=== PATIENT | male | born 1990 | race Two or more races ===

== ENCOUNTER 2016-10-26 09:46 | Emergency (ER) | payer OTHER ==
[2016-10-26 09:51] VITALS: BP 113/46; PULSE 65; TEMP 98; BMI 25.7
--- NOTE | 2016-10-26 09:52 | PDOC ---
History of Present Illness - General Chief Complaint: Syncope/Near Syncope Stated Complaint: SYNCOPE Time Seen by Provider: 10/26/16 09:49 History Source: Patient Exam Limitations: No Limitations - History of Present Illness Initial Comments: 10/26/16 10:34 26m no known pmhx presents with episode of syncope. The pt was upstairs and his was awaiting a procedure. he was standing and felt lightheaded and was noticed to be pale and diaphoretic, and he syncopized for a few seconds, sat up and syncopized again. Pt was seen striking his head on the left nondenominational (not the first part of body that hit the ground) PT denies any associated headache, palpitations, chest pain, abd pain, back pain, melena, bpr. Pt states he had not eaten today and was feeling a bit anxious prior to her 's procedure. pt states he had 1 episode of syncope in the past when he had blood drawn for the first time no exertional syncope no known family history denies ivdu Past History - Past Medical History Allergies/Adverse Reactions: Allergies Allergy/AdvReac Type Severity Reaction Status Date / Time No Known Allergies Allergy Verified 10/26/16 09:52 Home Medications: Ambulatory Orders Fexofenadine HCl [Tanja Allergy] 0 mg PO DAILY 10/26/16 Other medical history: IBS, SELECTIVE IGA DEFF - Psycho/Social/Smoking Cessation Hx Anxiety: No Suicidal Ideation: No Smoking History: Never smoked Hx Alcohol Use: Yes Drug/Substance Use Hx: No Substance Use Type: Alcohol Review of Systems - Review of Systems Able to Perform ROS?: Yes Comments:: 10/26/16 10:38 Constitutional - no reported Fever, Chills, HEENT: no reported vision changes, sore throat Respiratory: no reported cough, sob, hemoptysis Cardiac: +syncope no reported chest pain, palpitations, light headedness, leg swelling Abd/GI: no reported abd pain, nausea, vomiting, blood per rectum, melena, diarrhea : no reported dysuria, frequency, discharge Musculskelatal - no reported back pain, joint swelling skin - no reported bruising, erythema, rash neurological: no reported headache, numbness, focal weakness, tingling, ataxia, hematologic: no reported anemia, easy bruising, easy bleeding *Physical Exam - Vital Signs Last Vital Signs Temp Pulse Resp BP Pulse Ox 98.0 F 65 16 113/46 100 10/26/16 09:47 10/26/16 09:47 10/26/16 09:47 10/26/16 09:47 10/26/16 09:47 - Physical Exam Comments: 10/26/16 10:40 GENERAL: The patient is awake, alert, and fully oriented, Nontoxic - in no acute distress. HEAD: Normocephalic, atraumatic, minmial tenderness of left anterior scalp/ foreahed w/o any bruising, ecchymosis, swelling, erythema EYES: extraocular movements intact, sclera anicteric, conjunctiva clear, pupils 3mm and symmetrically reactive to light ENT: Normal voice, Moist mucous membranes. NECK: Normal range of motion, supple LUNGS: Breath sounds equal, clear to auscultation bilaterally. No wheezes, no rhonchi, no rales. HEART: Regular rate and rhythm, normal S1 and S2 without murmur, rub or gallop. ABDOMEN: Soft, nontender, normoactive bowel sounds. No guarding, no rebound. . No CVA tenderness EXTREMITIES: Normal range of motion, no edema. No clubbing or cyanosis. No cords, erythema, or tenderness. NEUROLOGICAL: No facial assymetry, Normal speech, normal gait, moving all 4 extremities spontanoeusly and symmetrically PSYCH: Normal mood, normal affect. SKIN: Warm, Dry, normal turgor, Heart Score/ECG Review - ECG Impressions Comment:: 10/26/16 10:41 Twelve-lead EKG was performed and reviewed by me. There is normal sinus rhythm with a normal rate. Rate of 64 The axis is normal. The intervals are normal. There is normal R wave progression There are no ST or T wave abnormalities. Impression: Normal twelve-lead EKG Medical Decision Making - Medical Decision Making 10/26/16 10:41 26y M presenting with syncopal episoe likely vasovagal will obtain ekg to screen for HOCM/LVH, arrthmias pt declines blood work as he wants to get back to his . as pt is otherwise healthy will have pt fu with his PMD instead will dc the pt with outpatient manatement and strict return precautions 10/26/16 11:11 pt feeling improved after having a meal ekg wnl will d/c the pt upstarirs return precautions were discussed I discussed the physical exam findings, ancillary test results and final diagnoses with the patient. I answered all of the patient's questions. The patient was satisfied with the care received and felt comfortable with the discharge plan and treatment plan. The patient will call their primary care physician within 24 hours to arrange follow-up and will return to the Emergency Department with any new, persistent or worsening symptoms. *DC/Admit/Observation/Transfer Diagnosis at time of Disposition: Syncope Qualifiers: Syncope type: vasovagal syncope Qualified Code(s): R55 - Syncope and collapse - Discharge Dispostion Admit: No - Referrals Referrals: Guillermo Ferguson MD [Staff Physician] - - Patient Instructions Printed Discharge Instructions: DI for Syncope in Adults (Fainting) Additional Instructions: We did not do any blood work at your request, so we could not rule out anemia or electrolyte derangements. Please follow up with your doctor for reevaluation of your symptoms Return to the emergency department immediately with ANY new, persistent or worsening symptoms including any pain, headache, nausea, vomiting, vision changes, neurologic impairments. Make sure you are staying well hydrated. You MUST call and follow up with your doctor tomorrow for further evaluation of your symptoms. Results were discussed with you. Please make sure your doctor reviews the results of your emergency evaluation.
--- NOTE | 2016-10-26 16:41 | EKG ---
Test Reason : Blood Pressure : / mmHG Vent. Rate : 064 BPM Atrial Rate : 064 BPM P-R Int : 116 ms QRS Dur : 092 ms QT Int : 390 ms P-R-T Axes : 024 061 045 degrees QTc Int : 402 ms POOR DATA QUALITY, INTERPRETATION MAY BE ADVERSELY AFFECTED NORMAL SINUS RHYTHM NORMAL ECG NO PREVIOUS ECGS AVAILABLE Confirmed by ISIAH GARCIA MD ([id number]) on 10/26/2016 4:41:10 PM Referred By: MD CHINO Confirmed By:ISIAH GARCIA MD
== END 2016-10-26 11:12 | disposition home or self-care (01) ==
LOC: FER 09:46
DX: R55 Syncope and collapse (principal); K58.9 Irritable bowel syndrome, unspecified
CPT/HCPCS: 93005; 99282-25